=== PATIENT | female | born 1950 | race Caucasian/White ===

== ENCOUNTER 2022-06-20 13:23 | Outpatient (CLI) | payer MEDICARE, SELFPAY ==
[2022-06-20 08:56] LABS: Abs Immature Grans 0.01 10^3/uL (0.0-0.06); Absolute Basophil Count 0.03 10^3/uL (0.0-0.2); Absolute Lymphocyte Count 1.92 10^3/uL (1.2-3.4); Absolute Monocyte Count 0.52 10^3/uL (0.1-0.8); Absolute Neutrophil Count 2.51 10^3/uL (1.2-6.7); Basophils % 0.6; HCT 32.5 % (36.0-46.0); HGB 10.6 g/dL (11.2-15.7); Immature Grans % 0.2; Lymphocytes % 38.5; MCH 28.7 pg (27.0-33.0); MCHC 32.6 % (32.0-36.0); MCV 88 fL (80-95); MPV 9.4 fL (8.0-11.0); Monocytes % 10.4; Neutrophils % 50.3; RBC 3.69 10^6/uL (3.93-5.22); RDW 14.8 % (11.7-14.6); RDW-SD 47.2 fL; WBC 4.99 10^3/uL (4.4-10.8)
[2022-06-20 09:02] LABS: Platelet Count 91 10^3/uL (130-400)
[2022-06-20 09:09] LABS: ALT 30 U/L (14-59); AST 28 U/L (15-37); Albumin 3.5 g/dL (3.4-5.0); Alkaline Phosphatase 94 U/L (46-116); Anion Gap 6.3 mmol/L (3-11); BUN 32 mg/dL (7-18); Bilirubin, Total 0.5 mg/dL (0.2-1.0); CO2 29.7 mmol/L (21.0-32.0); CREATININE 0.8 mg/dL (0.55-1.02); Calcium 9.3 mg/dL (8.5-10.1); Chloride 103 mmol/L (98-107); Estimated GFR 77.27 (mL/min/1.73m2); Glucose 119 mg/dL (74-106); LDH 216 U/L (81-234); Potassium 4.2 mmol/L (3.5-5.1); Sodium 139 mmol/L (136-145); Total Protein 6.7 g/dL (6.4-8.2)
[2022-06-21 09:12] LABS: HBs Antibody, Quant <3.1 mIU/mL (See Note); Hepatitis B Surface Ab Negative (See Note)
[2022-06-21 09:17] LABS: Hepatitis B Surface Ag Negative (Negative)
[2022-06-21 10:24] LABS: Hep B Core Antibody Negative (Negative)
== END 2022-06-20 13:24 | disposition home or self-care (01) ==
PROVIDERS: PCP Physician Assistant; Visit Provider Internal Medicine Hematology & Oncology
DX: C83.07 Small cell B-cell lymphoma, spleen (principal)
CPT/HCPCS: 36415; 80053; 86704; 86706; 87340; 83615; 84550; 85025

== ENCOUNTER 2022-07-18 01:28 | Outpatient (RCR) | payer MEDICARE, SELFPAY ==
[2022-07-18] MEDS: Normal Saline Flush 10 ML SYR IVP (07:50)
[2022-07-18 07:59] LABS: Absolute Basophil Count 0.03 10^3/uL (0.0-0.2); Absolute Lymphocyte Count 0.29 10^3/uL (1.2-3.4); Absolute Monocyte Count 0.37 10^3/uL (0.1-0.8); Basophils % 1.5; HGB 11.1 g/dL (11.2-15.7); Lymphocytes % 14.6; MCH 29.8 pg (27.0-33.0); MCHC 34.7 % (32.0-36.0); MCV 86 fL (80-95); MPV 9.5 fL (8.0-11.0); Monocytes % 18.6; Neutrophils % 65.3; RBC 3.73 10^6/uL (3.93-5.22); RDW 15.8 % (11.7-14.6); RDW-SD 48.8 fL
[2022-07-18 08:12] LABS: ALT 31 U/L (14-59); AST 24 U/L (15-37); Albumin 3.8 g/dL (3.4-5.0); Alkaline Phosphatase 103 U/L (46-116); Anion Gap 5.6 mmol/L (3-11); BUN 35 mg/dL (7-18); Bilirubin, Total 0.5 mg/dL (0.2-1.0); CO2 29.4 mmol/L (21.0-32.0); CREATININE 0.7 mg/dL (0.55-1.02); Calcium 8.9 mg/dL (8.5-10.1); Chloride 103 mmol/L (98-107); Glucose 120 mg/dL (74-106); Potassium 4.3 mmol/L (3.5-5.1); Sodium 138 mmol/L (136-145); Total Protein 6.6 g/dL (6.4-8.2)
[2022-07-18 08:30] LABS: Diff Comment Agrees w/ Instrument
[2022-07-18 08:31] LABS: Platelet Count 76 10^3/uL (130-400)
[2022-07-18 08:32] LABS: WBC 1.99 10^3/uL (4.4-10.8)
[2022-07-18 08:33] LABS: RBC Morphology Normal
== END 2022-08-10 23:59 | disposition home or self-care (01) ==
LOC: INF 01:28
PROVIDERS: PCP Physician Assistant; Visit Provider Internal Medicine Hematology & Oncology
DX: C83.07 Small cell B-cell lymphoma, spleen (principal); Z45.2 Encounter for adjustment and management of vascular access device
CPT/HCPCS: 36591; 80053; 85025

== ENCOUNTER 2022-08-15 07:28 | Outpatient (RCR) | payer MEDICARE, SELFPAY ==
[2022-08-15] MEDS: Normal Saline Flush 10 ML SYR IVP (07:38)
[2022-08-15 07:45] LABS: Abs Immature Grans 0.01 10^3/uL (0.0-0.06); Absolute Basophil Count 0.03 10^3/uL (0.0-0.2); Absolute Lymphocyte Count 0.18 10^3/uL (1.2-3.4); Absolute Monocyte Count 0.49 10^3/uL (0.1-0.8); Absolute Neutrophil Count 2.75 10^3/uL (1.2-6.7); Basophils % 0.9; HCT 35.6 % (36.0-46.0); HGB 12.9 g/dL (11.2-15.7); Immature Grans % 0.3; Lymphocytes % 5.2; MCH 31.5 pg (27.0-33.0); MCHC 36.2 % (32.0-36.0); MCV 87 fL (80-95); MPV 8.9 fL (8.0-11.0); Monocytes % 14.2; Neutrophils % 79.4; Platelet Count 111 10^3/uL (130-400); RBC 4.09 10^6/uL (3.93-5.22); RDW 14.7 % (11.7-14.6); RDW-SD 47.2 fL; WBC 3.46 10^3/uL (4.4-10.8)
[2022-08-15 08:13] LABS: ALT 34 U/L (14-59); AST 21 U/L (15-37); Albumin 4.2 g/dL (3.4-5.0); Alkaline Phosphatase 79 U/L (46-116); Anion Gap 6.9 mmol/L (3-11); BUN 30 mg/dL (7-18); Bilirubin, Total 0.8 mg/dL (0.2-1.0); CO2 30.1 mmol/L (21.0-32.0); CREATININE 0.6 mg/dL (0.55-1.02); Calcium 9.4 mg/dL (8.5-10.1); Chloride 98 mmol/L (98-107); Estimated GFR 94.13 (mL/min/1.73m2); Glucose 150 mg/dL (74-106); Potassium 4.2 mmol/L (3.5-5.1); Sodium 135 mmol/L (136-145); Total Protein 7.1 g/dL (6.4-8.2)
== END 2022-09-10 23:59 | disposition home or self-care (01) ==
LOC: INF 07:28
PROVIDERS: PCP Physician Assistant; Visit Provider Internal Medicine Hematology & Oncology
DX: C83.07 Small cell B-cell lymphoma, spleen (principal); Z45.2 Encounter for adjustment and management of vascular access device
CPT/HCPCS: 36591; 80053; 85025

== ENCOUNTER 2022-09-12 02:56 | Outpatient (RCR) | payer MEDICARE, SELFPAY ==
[2022-09-12] MEDS: Normal Saline Flush 10 ML SYR IVP (07:32)
[2022-09-12 07:49] LABS: Absolute Basophil Count 0.03 10^3/uL (0.0-0.2); Absolute Lymphocyte Count 0.13 10^3/uL (1.2-3.4); Basophils % 1.7; HCT 32.3 % (36.0-46.0); HGB 11.3 g/dL (11.2-15.7); Lymphocytes % 7.4; MCV 92 fL (80-95); MPV 9.4 fL (8.0-11.0); Monocytes % 22.7; Neutrophils % 68.2; Platelet Count 108 10^3/uL (130-400); RBC 3.53 10^6/uL (3.93-5.22); RDW 14.4 % (11.7-14.6); RDW-SD 48.3 fL
[2022-09-12 07:58] LABS: Diff Comment Diff Reviewed; RBC Morphology Normal
[2022-09-12 08:09] LABS: ALT 31 U/L (14-59); AST 22 U/L (15-37); Albumin 3.8 g/dL (3.4-5.0); Alkaline Phosphatase 102 U/L (46-116); Anion Gap 6.7 mmol/L (3-11); BUN 25 mg/dL (7-18); Bilirubin, Total 0.6 mg/dL (0.2-1.0); CO2 27.3 mmol/L (21.0-32.0); CREATININE 0.6 mg/dL (0.55-1.02); Chloride 105 mmol/L (98-107); Estimated GFR 94.13 (mL/min/1.73m2); Glucose 105 mg/dL (74-106); Potassium 4.1 mmol/L (3.5-5.1); Sodium 139 mmol/L (136-145); Total Protein 6.4 g/dL (6.4-8.2)
[2022-09-12 08:20] LABS: WBC 1.76 10^3/uL (4.4-10.8)
== END 2022-10-08 23:59 | disposition home or self-care (01) ==
LOC: INF 02:56
PROVIDERS: PCP Physician Assistant; Visit Provider Internal Medicine Hematology & Oncology
DX: C83.07 Small cell B-cell lymphoma, spleen (principal); Z45.2 Encounter for adjustment and management of vascular access device
CPT/HCPCS: 36591; 80053; 85025

== ENCOUNTER 2022-11-07 02:08 | Outpatient (RCR) | payer MEDICARE, SELFPAY ==
--- OUTSIDE RECORDS SUMMARY | 2022-10-10 08:37 | XMS_ITS ---
Author Name Zelda Valencia Address [address], [place] [id number] Organization [facility] Address [address], [place] [id number] Care Team Providers Care Facilities Engineer Name Role Phone Zelda pacheco Unavailable [phone] PROBLEMS Type Condition ICD9-CM Code XYE27-ZZ Code Onset Dates Condition Status SNOMED Code Problem Other iron deficiency anemia D50.8 Active 71215922 Problem SCCA (squamous cell carcinoma) of skin C44.92 Active 044290652 ALLERGIES Substance Reaction Event Type Date Status Seasonal IC Unknown Drug Allergy 14 Apr, 2022 Active ENCOUNTERS Encounter Location Date Diagnosis [facility] [address] [id number] Apr, SCCA (squamous cell carcinoma) of skin C44.92 [facility] Op [address] [place], [place] [id number] Apr, Pigmented skin lesion L81.9 [facility] [address] [id number] Mar, Outlook Pre-Op Clearance [address] [place] [address] Mar, [facility] [address] [id number] Mar, [facility] [address] [id number] Feb, Pigmented skin lesion L81.9 [facility] [address] [id number] Feb, Gastroenterology [address] [facility] [address] [place], [place] [id number] Jul, Gastroenterology [address] [facility] [address] [place], [place] [id number] Jun, Abnormal liver enzymes R74.8 and Anemia, unspecified type D64.9 Gastroenterology [address] [facility] [address] [place], [place] [id number] May, Gastroenterology [address] [facility] [address] [place], [place] [id number] May, Other iron deficiency anemia D50.8 and Abnormal liver enzymes R74.8 Gastroenterology [address] [facility] [address] [place], [place] [id number] May, [facility] [address] [facility] [address] [place] [id number] Apr, [facility] Audiology [address] [facility] [address] [place], [place] [id number] Jul, SENSORNEUR HEAR LOSS NOS 389.10 IMMUNIZATIONS No Known Immunizations SOCIAL HISTORY Qualifiers Date Former Smoker REASON FOR REFERRAL FUNCTIONAL STATUS PLAN OF CARE Activity Details VITAL SIGNS Height 5ft 5in in 2022-04-30 Height 5ft 5in in 2022-03-06 Height 5ft 5in in 2021-06-20 Weight 121.4 lbs 2022-04-30 Weight 124.6 lbs 2022-03-06 Weight 130.8 lbs 2021-06-20 Weight 131.8 lbs 2021-06-05 Weight 126.4 lbs 2021-06-04 Temperature 96.2 degrees Fahrenheit Temperature 96.5 degrees Fahrenheit Temperature 97.8 degrees Fahrenheit Temperature 97.7 degrees Fahrenheit Heart Rate 86 /min 2022-04-30 Heart Rate 41 /min 2022-03-06 Heart Rate 93 /min 2021-06-20 Heart Rate 82 /min 2021-06-05 Oximetry 96 2022-04-30 Oximetry 96 2022-03-06 Oximetry 97 2021-06-20 Oximetry 98 2021-06-05 BMI 20.20 kg/m2 2022-04-30 BMI 20.73 kg/m2 2022-03-06 BMI 21.76 kg/m2 2021-06-20 Blood pressure systolic 118 mm Hg Blood pressure diastolic 58 mm Hg 2022-04 MEDICATIONS Medication Instructions Dosage Frequency Start Date End Date Duration Status CoQ-10 100 MG as directed Active Macular Health Formula - as directed Active Magnesium Oxide 200 MG as directed Active Citracal +D3 250-107-500 MG-MG-UNIT Orally twice a day as directed 12h Active Optic-Vites - Orally twice a day as directed 12h Active Vitamin D 25 MCG (1000 UT) Orally twice a day 1 tablet 12h Active Vitamin K2 100 MCG as directed Active Lisinopril 20 MG Orally Once a day 1 tablet 24h 30 day(s) Active Cholecalciferol 25 MCG (1000 UT) Orally Once a day 1 capsule 24h 30 day(s) Not-Taki ng Daily [employer] Formula - as directed A ctive [place]-3 & [place]-6 Fish Oil Active Iron 325 MG Orally Twice a day 1 tablet 12h Not-Taki ng PROCEDURES Procedure Date Ordered Result Body Site PUNCH BX SKIN SINGLE LESION March 06, 2022 COMPREHENSIVE AUDIOMET THRESH AND SPEECH Jul 30, 2012 RESULTS Name Result Date Reference Range XR FOOT 3 VIEW LEFT 2022-03-26 US ABDOMINAL LIMITED 2021-06-12 HEPATITIS B SURFACE ANTIGEN 2021-06-05 HEP B SURFACE AG NON-REACTIVE NON-REACTIV E HEP B SURFACE AG NON-REACTIVE NON-REACTIV E ALPHA 1 ANTITRYPSIN PHENOTYPE ([id number]) 31-05-26 Kpeqg-1-Hwtujvsvswb, Serum 171 1 01-187 Phenotype (PI) MS KATTY ([id number]) 2021-06-05 Antinuclear Antibodies, IFA Negative JAKE FIBROSURE ( [id number]) 2021-06-05 Fibrosis Score 0.08 0.00-0.21 Fibrosis Stage Comment Steatosis Score 0.51 0.00-0.30 Steatosis Grade Comment JAKE Score 0.15 0.00-17.00 JAKE Grade Comment Height: 65 Weight: 131 Alpha 2-Macroglobulins, Qn 137 1 10-276 Haptoglobin 184 42-346 Apolipoprotein A-1 107 116-209 Bilirubin, Total 0.2 0.0-1.2 GGT 14 0-60 ALT (SGPT) P5P 29 0-40 AST (SGOT) P5P 35 0-40 Cholesterol, Total 160 100-199 Glucose, Serum 124 65-99 Triglycerides 96 0-149 Interpretation: Comment Fibrosis Scoring: Comment Steatosis Grading Comment JAKE Scoring Comment Limitations: Comment Comment: Comment CERULOPLASMIN ([id number]) 2021-06-05 Ceruloplasmin 46.4 19.0-39.0 COMPREHENSIVE METABOLIC PROFILE 2021-05-12 6 SODIUM 134 134-143 POTASSIUM 4.2 3.5-5.1 CHLORIDE 99 98-111 CO2 25 22-32 CALCIUM 9.5 8.9-10.3 BUN 27 8-26 CREATININE 0.66 0.44-1.00 TOTAL BILIRUBIN 0.3 0.3-1.2 TOTAL PROTEIN 6.6 6.5-8.1 ALBUMIN 3.8 3.5-5.0 ALKALINE PHOS 81 32-92 AST 31 15-41 ALT 29 14-54 A/GAP 10.0 3.0-12.0 B/CR 40.9 8.0-20.0 OSMOLARITY 275 275-295 GLOBULIN 2.8 2.3-3.5 A/G 1.4 1.0-2.5 HEPATITIS A TOTAL ANTIBODY ([id number]) 06-05 Hep A Ab, Total Negative Negative HEPATITIS B CORE TOTAL ANTIBODY ([id number]) 2021-06-05 Hep B Core Ab, Tot Negative Negative HEPATITIS B SURFACE ANTIBODY 2021-06-05 HEPATITIS C ANTIBODY 2021-06-05 HEP C IgG ANTIBODY NON-REACTIVE NON-REACT SCOOTER HEP C IgG ANTIBODY NON-REACTIVE NON-REACT SCOOTER MITOCHONDRIAL (M2) IGG ABS ([id number]) 06-05 Mitochondrial (M2) Antibody <20.0 0.0-20.0 CBC, WITH AUTO DIFF 2021-06-05 WBC 6.5 4.8-10.8 RBC 4.36 4.20-5.40 HGB 11.6 12.0-16.0 HCT 35.9 37.0-47.0 MCV 82.3 81.0-99.0 MCH 26.6 27.0-31.0 MCHC 32.3 32.0-37.0 RDW-CV 17.1 11.5-14.5 PLT 133 130-400 MPV 9.6 7.4-10.4 NE% 45.4 42.2-75.2 LY% 39.6 20.5-51.1 MO% 13.7 1.7-9.3 EO% 0.5 0.9-2.9 BA% 0.6 0.0-0.8 NE# 3.0 1.4-6.5 LY# 2.6 1.2-3.4 MO# 0.9 0.1-0.6 EO# 0.0 0.0-0.2 BA# 0.0 0.0-0.2 SMEAR COMMENT SEE COMMENTS SEE COMMENTS SMOOTH MUSCLE TOTAL AUTOABS 2021-06-05 CELIAC DISEASE COMPREHENSIVE ([id number]) 08-20-25 Deamidated Gliadin Abs, IgA 2 0-19 Deamidated Gliadin Abs, IgG 2 0-19 t-Transglutaminase (tTG) IgA <2 0-3 t-Transglutaminase (tTG) IgG <2 0-5 Endomysial Antibody IgA Negative Nega tive Immunoglobulin A, Qn, Serum 77 64-422 FERRITIN 2021-06-05 FERRITIN 111.9 11.0-307.0 IRON/TRANSFERRIN PANEL 2021-06-05 IRON 49 28-170 TRANSFERRIN 227 192-382 TIBC 318 250-400 IRON SATURATION 15 20-55 VITAMIN B12 & FOLATE 2021-06-05 VIT B12 726 180-914 FOLATE >20.0 >=6.0 REASON FOR VISIT GS-f/u EXCISION OF SCC LEFT LOWER EXT 04/17/2022, Path: Squamous cell carcinoma, well differentiated, invasive. Margins of excision negative, GS EXCISION OF SCC LEFT LOWER EXT, 03/06/2022: punch biopsy Left lateral leg lesion: atypical endophytic squamous proliferation, Requesting pathology report, pre op, biopsy results, GS EXCISION LESION LEFT LOWER EXTREMITY, Procedure question, lab test letter- awaiting call 07/27, GI- 2 WK F/U anemia and elevated liver functions., GI- Anemia, question of bleed, pre load, Prescription refill, AUD- LUMBER STRAIGHTENED AUD Insurance Providers Health Insurance Type Health Plan Insurance Address Health Plan Insurance Phone Health Plan Insurance Name Health Plan Coverage Dates Member ID Patient Relationship to Subscriber Patient Address Patient Phone Patient Name Patient Date of Subscriber ID Subscriber Name Subscriber Date of Group No [facility] [address] [facility] [id number] [facility] self Sarah Easley [id number] Plan N NGS MEDIC[place] [address] [place] [phone] NGS MEDICARE self Sarah Easley [id number] MEDICARE [address] [facility] [address] [phone] MEDICARE self Sarah Easley [id number] MEDICARE PART A [address] [facility] [address] MEDICARE PART A self Sarah Easley [id number] BCBS OUT OF AREA [address] ATTN CLAIMS [facility] [id number] [phone] BCBS OUT OF AREA self Sarah Easley [id number]
--- OUTSIDE RECORDS SUMMARY | 2022-10-10 08:37 | XMS_ITS | Continuity of Care Document ---
Author Name Unknown Organization [facility] Address [address] [place] [phone] Care Team Providers Care Artificial Flowers Supervisor Name Role Phone Kaley Rubio Primary Care Physic blayne Encounter [facility]_[place] FIN NBR [id number] Date(s): 07/02/22 - 07/02/[address] [address] Discharge Disposition: Home or Self Care Attending Physician: SANDEEP ASCENCIO Admitting Physician: SANDEEP ASCENCIO Results Laboratory List Name Date CBC w/ Diff 07/02/22 Comprehensive Metabolic Panel 07/02/22 Ferritin 07/02/22 Lactate Dehydrogenase 07/02/22 Automated Diff 07/02/22 Most recent to oldest [Reference Range]: 1 WBC [4.8-10.8 K/mcL] 3.3 K/mcL *LOW* (07/02/22 10:36 AM) RBC [4.20-6.10 Million/mcL] 4.02 Million /mcL *LOW* (07/02/22 10:36 AM) Neutro Auto [42.2-75.2 %] 67.9 % (07/02/22 10:36 AM) Lymph Auto [20.5-51.1 %] 18.2 % *LOW* (07/02/22 10:36 AM) [place] Auto [1.7-9.3 %] 13.0 % *HI* (07/02/22 10:36 AM) Basophil Auto [0.0-0.8 %] 0.6 % (07/02/22 10:36 AM) BUN [8-26 mg/dL] 27 mg/dL *HI* (07/02/22 10:36 AM) Glucose Level [74-106 mg/dL] 108 mg/dL *HI* (07/02/22 10:36 AM) Potassium Level [3.5-5.1 mmol/L] 4.2 mmo l/L (07/02/22 10:36 AM) Baso Absolute [0.0-0.2 K/mcL] 0.0 K/mcL (07/02/22 10:36 AM) MCV [80.0-99.0 fL] 85.3 fL (07/02/22 10:36 AM) AST [15-41 IntlUnit/L] 31 IntlUnit/L (07/02/22 10:36 AM) ALT [14-54 IntlUnit/L] 42 IntlUnit/L (07/02/22 10:36 AM) MCHC [32.0-36.0 g/dL] 33.8 g/dL (07/02/22 10:36 AM) Osmolality [275-295 mOsm/kg] 278 mOsm/kg (07/02/22 10:36 AM) Sodium Level [134-143 mmol/L] 136 mmol/L (07/02/22 10:36 AM) Lymph Absolute [1.2-3.4 K/mcL] 0.6 K/mcL *LOW* (07/02/22 10:36 AM) Hct [37.0-52.0 %] 34.3 % *LOW* (07/02/22 10:36 AM) Calcium Level [8.9-10.3 mg/dL] 9.3 mg/dL (07/02/22 10:36 AM) [place] Absolute [0.1-0.6 K/mcL] 0.4 K/mcL (07/02/22 10:36 AM) Albumin Level [3.5-5.0 g/dL] 4.0 g/dL (07/02/22 10:36 AM) Protein Total [6.5-8.1 g/dL] 6.3 g/dL *LOW* (07/02/22 10:36 AM) MCH [27.0-31.0 pg] 28.9 pg (07/02/22 10:36 AM) Neutro Absolute [1.4-6.5 K/mcL] 2.2 K/mc L (07/02/22 10:36 AM) Bilirubin Total [0.2-1.2 mg/dL] 0.9 mg/d L (07/02/22 10:36 AM) Hgb [12.0-18.0 g/dL] 11.6 g/dL *LOW* (07/02/22 10:36 AM) Alk Phos [38-130 IntlUnit/L] 70 IntlUnit /L (07/02/22 10:36 AM) LDH [98-192 IntlUnit/L] 203 IntlUnit/L *HI* (07/02/22 10:36 AM) MPV [7.4-10.4 fL] 8.3 fL (07/02/22 10:36 AM) Ferritin Level [11.0-307.0 ng/mL] 448.5 ng/mL *HI* (07/02/22 10:36 AM) Platelets [130-400 K/mcL] 165 K/mcL (07/02/22 10:36 AM) CO2 [22-32 mmol/L] 27 mmol/L (07/02/22 10:36 AM) Eos Absolute [0.0-0.2 K/mcL] 0.0 K/mcL (07/02/22 10:36 AM) eGFR Non-AA 97 *NA* (07/02/22 10:36 AM) eGFR AA 97 *NA* (07/02/22 10:36 AM) Chloride Level [98-111 mmol/L] 101 mmol/ L (07/02/22 10:36 AM) RDW-CV [11.5-14.5 %] 15.6 % *HI* (07/02/22 10:36 AM) A/G Ratio 1.7 *NA* (07/02/22 10:36 AM) BUN/Creat Ratio [8.0-20.0] 50.9 *HI* (07/02/22 10:36 AM) Globulin 2.3 *NA* (07/02/22 10:36 AM) Imm Gran Absolute 0.01 *NA* (07/02/22 10:36 AM) Imm Gran Auto [0.0-0.5 %] 0.3 % (07/02/22 10:36 AM) Creatinine Level [0.44-1.00 mg/dL] 0.53 mg/dL (07/02/22 10:36 AM) Anion Gap [3.0-12.0] 8.0 (07/02/22 10:36 AM) Eos, Auto [0.00-3.00 %] 0.00 % (07/02/22 10:36 AM) Patient Care team information Personnel Name: Kaley Rubio Address: Address: [address] [place] [address] [place], [place] [address]
--- OUTSIDE RECORDS SUMMARY | 2022-10-10 08:37 | XMS_ITS | Continuity of Care Document ---
Author Name Unknown Organization [facility] Address [address] [place] [phone] Care Team Providers Care Floor Tiling Professional Name Role Phone Kaley Rubio Primary Care Physic blayne Encounter LTTL_[facility] FIN NBR [id number] Date(s): 06/18/22 - 06/18/[address] [id number] [phone] Discharge Disposition: Home or Self Care Attending Physician: Kaley Rubio Admitting Physician: Kaley Rubio Results Radiology Reports * Exam Date Time Procedure Performing Provider Status 06/18/22 8:36 AM MG Mammo Screening Bilateral Perras, A nna; Auth (Verified) Notes: (MG Mammo Screening Bilateral) Reason For Exam: screening MG Mammo Screening Bilateral EXAM DESCRIPTION: MG Mammo Screening Bilateral 06/18/2022 INDICATION: SCREENING RISK FACTOR: The patient may be at increased breast cancer risk based on Paula risk model COMPARISON: Prior studies most recently dated 06/14/2021 and 06/13/2020 BREAST DENSITY: The breasts are heterogeneously dense which may obscure small masses. FINDINGS: MLO and CC views were performed with digital breast tomosynthesis. Images were reviewed using computer aided detection. No asymmetry, architectural distortion or suspicious grouping of calcifications to suggest malignancy in either breast. ASSESSMENT: No mammographic evidence of malignancy. Negative. BI-RADS category 1. RECOMMENDATION: Screening mammography in 1 year JOB #: [id number] Final Signed by: Reid Manuel MD Signed (Electronic Signature): 06/18/2022 9:01 am * Exam Date Time Procedure Performing Provider Status 06/18/22 8:52 AM BD Bone Density DEXA Axial Skeleton Alaina Hannah; Auth (Verified) Notes: (BD Bone Density DEXA Axial Skeleton) Reason For Exam: OSTEO BD Bone Density DEXA Axial Skeleton EXAM DESCRIPTION: BD Bone Density DEXA Axial Skeleton 06/18/2022 INDICATION: OSTEO TECHNIQUE: Bone Densitometry (DEXA) was performed. COMPARISON: 06/13/2020 FINDINGS: Average bone mineral density of the lumbar spine from L1-4 is 0.791 g per sq cm corresponding to a T-score of -2.3. Findings consistent with osteopenia. Increased fracture risk. 8.3% interval decrease in bone density in this region. Bone mineral density in the left femoral neck is 0.644 g per sq cm corresponding to a T-score of -1.8. Findings consistent with osteopenia. Increased fracture risk. 3.4% interval decrease in bone density in this region. Bone mineral density involving the distal 1/3 of the left forearm is 0.446 g per sq cm corresponding to a T-score of -4.1. Findings consistent with osteoporosis. High fracture risk. 2.9% interval decrease in bone density in this region. FRAX-10 year probability of fracture: Major osteoporotic fracture 10%, hip fracture 2.5%. IMPRESSION: Findings consistent with osteoporosis. High fracture risk. JOB #: [id number] Final Signed by: Reid Manuel MD Signed (Electronic Signature): 06/18/2022 8:58 am DXA Skeletal system.axial Views for bone density * Reid Manuel MD: VERIFY, VERIFY Event Display: Report EXAM DESCRIPTION: BD Bone Density DEXA Axial Skeleton 06/18/2022 INDICATION: OSTEO TECHNIQUE: Bone Densitometry (DEXA) was performed. COMPARISON: 06/13/2020 FINDINGS: Average bone mineral density of the lumbar spine from L1-4 is 0.791 g per sq cm corresponding to a T-score of -2.3. Findings consistent with osteopenia. Increased fracture risk. 8.3% interval decrease in bone density in this region. Bone mineral density in the left femoral neck is 0.644 g per sq cm corresponding to a T-score of -1.8. Findings consistent with osteopenia. Increased fracture risk. 3.4% interval decrease in bone density in this region. Bone mineral density involving the distal 1/3 of the left forearm is 0.446 g per sq cm corresponding to a T-score of -4.1. Findings consistent with osteoporosis. High fracture risk. 2.9% interval decrease in bone density in this region. FRAX-10 year probability of fracture: Major osteoporotic fracture 10%, hip fracture 2.5%. IMPRESSION: Findings consistent with osteoporosis. High fracture risk. JOB #: [id number] Final Signed by: Reid Manuel MD Signed (Electronic Signature): 06/18/2022 8:58 am MG Breast - bilateral Screening * Reid Manuel MD: VERIFY, VERIFY Event Display: Report EXAM DESCRIPTION: MG Mammo Screening Bilateral 06/18/2022 INDICATION: SCREENING RISK FACTOR: The patient may be at increased breast cancer risk based on Paula risk model COMPARISON: Prior studies most recently dated 06/14/2021 and 06/13/2020 BREAST DENSITY: The breasts are heterogeneously dense which may obscure small masses. FINDINGS: MLO and CC views were performed with digital breast tomosynthesis. Images were reviewed using computer aided detection. No asymmetry, architectural distortion or suspicious grouping of calcifications to suggest malignancy in either breast. ASSESSMENT: No mammographic evidence of malignancy. Negative. BI-RADS category 1. RECOMMENDATION: Screening mammography in 1 year JOB #: [id number] Final Signed by: Reid Manuel MD Signed (Electronic Signature): 06/18/2022 9:01 am Patient Care team information Care Team Personnel Name: Kaley Rubio Position: No Access Member Role: Primary Care Physician Address: Address: [address] [facility] [place], [place] [address]
[2022-10-10 08:48] LABS: Absolute Basophil Count 0.03 10^3/uL (0.0-0.2); Absolute Lymphocyte Count 0.18 10^3/uL (1.2-3.4); Absolute Monocyte Count 0.41 10^3/uL (0.1-0.8); Absolute Neutrophil Count 1.66 10^3/uL (1.2-6.7); Basophils % 1.3; HCT 34.2 % (36.0-46.0); HGB 12.1 g/dL (11.2-15.7); Lymphocytes % 7.9; MCH 32.3 pg (27.0-33.0); MCHC 35.4 % (32.0-36.0); MCV 91 fL (80-95); MPV 9.1 fL (8.0-11.0); Neutrophils % 72.8; Platelet Count 104 10^3/uL (130-400); RBC 3.75 10^6/uL (3.93-5.22); RDW 13.5 % (11.7-14.6); RDW-SD 46.1 fL; WBC 2.28 10^3/uL (4.4-10.8)
[2022-10-10 09:00] LABS: ALT 39 U/L (14-59); AST 25 U/L (15-37); Albumin 3.9 g/dL (3.4-5.0); Alkaline Phosphatase 115 U/L (46-116); Anion Gap 7.3 mmol/L (3-11); BUN 31 mg/dL (7-18); Bilirubin, Total 0.6 mg/dL (0.2-1.0); CO2 28.7 mmol/L (21.0-32.0); CREATININE 0.7 mg/dL (0.55-1.02); Calcium 9.4 mg/dL (8.5-10.1); Chloride 104 mmol/L (98-107); Glucose 121 mg/dL (74-106); Potassium 4.4 mmol/L (3.5-5.1); Sodium 140 mmol/L (136-145); Total Protein 6.6 g/dL (6.4-8.2)
[2022-10-10] MEDS: Normal Saline Flush 10 ML SYR IVP (09:12)
[2022-11-07] MEDS: Normal Saline Flush 10 ML SYR IVP (09:04)
[2022-11-07 09:07] LABS: Abs Immature Grans 0.01 10^3/uL (0.0-0.06); Absolute Basophil Count 0.03 10^3/uL (0.0-0.2); Absolute Lymphocyte Count 0.14 10^3/uL (1.2-3.4); Absolute Monocyte Count 0.38 10^3/uL (0.1-0.8); Absolute Neutrophil Count 1.52 10^3/uL (1.2-6.7); Basophils % 1.4; HCT 35.1 % (36.0-46.0); HGB 12.5 g/dL (11.2-15.7); Immature Grans % 0.5; Lymphocytes % 6.7; MCH 32.7 pg (27.0-33.0); MCHC 35.6 % (32.0-36.0); MCV 92 fL (80-95); Monocytes % 18.3; Neutrophils % 73.1; Platelet Count 105 10^3/uL (130-400); RBC 3.82 10^6/uL (3.93-5.22); RDW 12.9 % (11.7-14.6); RDW-SD 43.3 fL; WBC 2.08 10^3/uL (4.4-10.8)
[2022-11-07 09:22] LABS: ALT 34 U/L (14-59); AST 24 U/L (15-37); Albumin 3.8 g/dL (3.4-5.0); Alkaline Phosphatase 99 U/L (46-116); Anion Gap 6.9 mmol/L (3-11); BUN 25 mg/dL (7-18); Bilirubin, Total 0.5 mg/dL (0.2-1.0); CO2 30.1 mmol/L (21.0-32.0); CREATININE 0.8 mg/dL (0.55-1.02); Calcium 9.5 mg/dL (8.5-10.1); Chloride 103 mmol/L (98-107); Estimated GFR 77.27 (mL/min/1.73m2); Glucose 114 mg/dL (74-106); Potassium 4.3 mmol/L (3.5-5.1); Sodium 140 mmol/L (136-145); Total Protein 6.7 g/dL (6.4-8.2)
== END 2022-11-08 23:59 | disposition home or self-care (01) ==
LOC: INF 02:08
PROVIDERS: PCP Physician Assistant; Visit Provider Internal Medicine Hematology & Oncology
DX: C83.07 Small cell B-cell lymphoma, spleen (principal); Z45.2 Encounter for adjustment and management of vascular access device
CPT/HCPCS: 36591; 80053; 85025

== ENCOUNTER 2022-12-26 12:22 | Outpatient (RCR) | payer MEDICARE, SELFPAY ==
[2022-12-26 12:27] LABS: Absolute Basophil Count 0.02 10^3/uL (0.0-0.2); Absolute Eosinophil Count 0.02 10^3/uL (0.0-0.7); Absolute Lymphocyte Count 0.16 10^3/uL (1.2-3.4); Absolute Monocyte Count 0.43 10^3/uL (0.1-0.8); Absolute Neutrophil Count 1.89 10^3/uL (1.2-6.7); Basophils % 0.8; Eosinophils % 0.8; HCT 34.9 % (36.0-46.0); HGB 12.5 g/dL (11.2-15.7); Lymphocytes % 6.3; MCHC 35.8 % (32.0-36.0); MCV 92 fL (80-95); MPV 8.8 fL (8.0-11.0); Monocytes % 17.1; Platelet Count 124 10^3/uL (130-400); RBC 3.79 10^6/uL (3.93-5.22); RDW 12.6 % (11.7-14.6); RDW-SD 42.3 fL; WBC 2.52 10^3/uL (4.4-10.8)
[2022-12-26 12:44] LABS: ALT 34 U/L (14-59); AST 25 U/L (15-37); Alkaline Phosphatase 86 U/L (46-116); Anion Gap 7.3 mmol/L (3-11); BUN 24 mg/dL (7-18); Bilirubin, Total 0.6 mg/dL (0.2-1.0); CO2 28.7 mmol/L (21.0-32.0); CREATININE 0.7 mg/dL (0.55-1.02); Calcium 9.4 mg/dL (8.5-10.1); Chloride 102 mmol/L (98-107); Glucose 98 mg/dL (74-106); Sodium 138 mmol/L (136-145)
[2022-12-26] MEDS: Heparin 500 UNITS/5 ML SYRINGE IV (13:57)
[2022-12-26] MEDS: Normal Saline Flush 10 ML SYR IVP (13:57)
== END 2023-01-08 23:59 | disposition home or self-care (01) ==
LOC: INF 12:22
PROVIDERS: PCP Physician Assistant; Visit Provider Internal Medicine Hematology & Oncology
DX: C83.07 Small cell B-cell lymphoma, spleen (principal); Z45.2 Encounter for adjustment and management of vascular access device
CPT/HCPCS: 36591; 80053; 96523; 85025

== ENCOUNTER 2023-06-26 13:11 | Outpatient (CLI) | payer MEDICARE, SELFPAY ==
[2023-06-26 12:07] LABS: Abs Immature Grans 0.01 10^3/uL (0.0-0.06); Absolute Basophil Count 0.02 10^3/uL (0.0-0.2); Absolute Eosinophil Count 0.05 10^3/uL (0.0-0.7); Absolute Lymphocyte Count 0.24 10^3/uL (1.2-3.4); Absolute Monocyte Count 0.35 10^3/uL (0.1-0.8); Absolute Neutrophil Count 2.14 10^3/uL (1.2-6.7); Basophils % 0.7; Eosinophils % 1.8; HCT 38.8 % (36.0-46.0); HGB 13.3 g/dL (11.2-15.7); Immature Grans % 0.4; Lymphocytes % 8.5; MCHC 34.3 % (32.0-36.0); MCV 90 fL (80-95); Monocytes % 12.5; Neutrophils % 76.1; Platelet Count 141 10^3/uL (130-400); RBC 4.29 10^6/uL (3.93-5.22); RDW 11.9 % (11.7-14.6); RDW-SD 39.4 fL; WBC 2.81 10^3/uL (4.4-10.8)
[2023-06-26 12:28] LABS: ALT 30 U/L (14-59); AST 25 U/L (15-37); Albumin 4.1 g/dL (3.4-5.0); Alkaline Phosphatase 87 U/L (46-116); Anion Gap 7.9 mmol/L (3-11); BUN 27 mg/dL (7-18); Bilirubin, Total 0.6 mg/dL (0.2-1.0); CO2 27.1 mmol/L (21.0-32.0); CREATININE 0.8 mg/dL (0.55-1.02); Chloride 104 mmol/L (98-107); Estimated GFR 76.79 (mL/min/1.73m2); Glucose 109 mg/dL (74-106); LDH 173 U/L (81-234); Sodium 139 mmol/L (136-145); Total Protein 7.3 g/dL (6.4-8.2)
[2023-06-30 14:00] LABS: IgA 87 mg/dL (85-499); IgG 626 mg/dL (610-1616); IgM 31 mg/dL (35-242); Kappa Free Light Chain 1.94 mg/dL (0.33-1.94); Lambda Free Light Chain 1.14 mg/dL (0.57-2.63)
[2023-06-30 14:52] LABS: Albumin 70.2 % (55.8-66.1); Albumin g/dL 4.7 g/dL (3.6-5.2); Total Protein 6.7 g/dL (6.3-8.2)
== END 2023-06-26 13:12 | disposition home or self-care (01) ==
LOC: LBO 13:11
PROVIDERS: PCP Physician Assistant; Visit Provider Internal Medicine Hematology & Oncology
DX: C83.07 Small cell B-cell lymphoma, spleen (principal)
CPT/HCPCS: 36415; 80053; 82784; 83615; 83883; 84165; 85025

== ENCOUNTER 2023-12-18 13:26 | Outpatient (CLI) | payer MEDICARE, SELFPAY ==
[2023-12-18 10:04] LABS: Abs Immature Grans 0.01 10^3/uL (0.0-0.06); Absolute Basophil Count 0.03 10^3/uL (0.0-0.2); Absolute Eosinophil Count 0.06 10^3/uL (0.0-0.7); Absolute Lymphocyte Count 0.27 10^3/uL (1.2-3.4); Absolute Monocyte Count 0.29 10^3/uL (0.1-0.8); Absolute Neutrophil Count 2.01 10^3/uL (1.2-6.7); Basophils % 1.1 %; Eosinophils % 2.2 %; HCT 40.8 % (36.0-46.0); HGB 14.1 g/dL (11.2-15.7); Immature Grans % 0.4 %; Lymphocytes % 10.1 %; MCHC 34.6 % (32.0-36.0); MCV 93 fL (80-95); MPV 9.7 fL (8.0-11.0); Monocytes % 10.9 %; Neutrophils % 75.3 %; Platelet Count 166 10^3/uL (130-400); RDW 11.9 % (11.7-14.6); RDW-SD 40.7 fL; WBC 2.67 10^3/uL (4.4-10.8)
[2023-12-18 10:54] LABS: ALT 27 U/L (14-59); AST 18 U/L (15-37); Albumin 4.2 g/dL (3.4-5.0); Alkaline Phosphatase 112 U/L (46-116); Anion Gap 9.5 mmol/L (3-11); BUN 37 mg/dL (7-18); Bilirubin, Total 0.5 mg/dL (0.2-1.0); CO2 27.5 mmol/L (21.0-32.0); CREATININE 0.8 mg/dL (0.55-1.02); Calcium 9.5 mg/dL (8.5-10.1); Chloride 103 mmol/L (98-107); Estimated GFR 76.79 (mL/min/1.73m2); Glucose 113 mg/dL (74-106); LDH 144 U/L (81-234); Potassium 4.3 mmol/L (3.5-5.1); Sodium 140 mmol/L (136-145); Total Protein 7.3 g/dL (6.4-8.2)
[2023-12-19 08:45] LABS: IgA 96 mg/dL (85-499); IgG 641 mg/dL (610-1616); IgM 26 mg/dL (35-242)
== END 2023-12-18 13:27 | disposition home or self-care (01) ==
LOC: LBO 13:27
PROVIDERS: PCP Physician Assistant; Visit Provider Internal Medicine Hematology & Oncology
DX: C83.07 Small cell B-cell lymphoma, spleen (principal)
CPT/HCPCS: 36415; 80053; 82784; 83615; 85025

== ENCOUNTER 2024-03-18 12:16 | Outpatient (CLI) | payer MEDICARE, SELFPAY ==
[2024-03-18 12:13] LABS: Abs Immature Grans 0.02 10^3/uL (0.0-0.06); Absolute Basophil Count 0.02 10^3/uL (0.0-0.2); Absolute Eosinophil Count 0.09 10^3/uL (0.0-0.7); Absolute Lymphocyte Count 0.42 10^3/uL (1.2-3.4); Absolute Monocyte Count 0.36 10^3/uL (0.1-0.8); Absolute Neutrophil Count 2.58 10^3/uL (1.2-6.7); Basophils % 0.6 %; Eosinophils % 2.6 %; HCT 40.4 % (36.0-46.0); HGB 13.8 g/dL (11.2-15.7); Immature Grans % 0.6 %; MCH 31.3 pg (27.0-33.0); MCHC 34.2 % (32.0-36.0); MCV 92 fL (80-95); MPV 9.2 fL (8.0-11.0); Monocytes % 10.3 %; Neutrophils % 73.9 %; Platelet Count 153 10^3/uL (130-400); RBC 4.41 10^6/uL (3.93-5.22); RDW 11.8 % (11.7-14.6); RDW-SD 39.6 fL; WBC 3.49 10^3/uL (4.4-10.8)
[2024-03-18 12:28] LABS: ALT 31 U/L (14-59); AST 22 U/L (15-37); Albumin 4.1 g/dL (3.4-5.0); Alkaline Phosphatase 81 U/L (46-116); Anion Gap 8.6 mmol/L (3-11); BUN 25 mg/dL (7-18); Bilirubin, Total 0.78 mg/dL (0.2-1.0); CO2 28.4 mmol/L (21.0-32.0); CREATININE 0.8 mg/dL (0.55-1.02); Calcium 9.5 mg/dL (8.5-10.1); Chloride 103 mmol/L (98-107); Estimated GFR 76.31 (mL/min/1.73m2); Glucose 105 mg/dL (74-106); LDH 154 U/L (81-234); Potassium 4.2 mmol/L (3.5-5.1); Sodium 140 mmol/L (136-145); Total Protein 7.1 g/dL (6.4-8.2)
== END 2024-03-18 12:17 | disposition home or self-care (01) ==
LOC: LBO 12:17
PROVIDERS: PCP Physician Assistant; Visit Provider Internal Medicine Hematology & Oncology
DX: C83.07 Small cell B-cell lymphoma, spleen (principal)
CPT/HCPCS: 36415; 80053; 83615; 85025

== ENCOUNTER 2024-09-29 02:20 | Outpatient (CLI) | payer MEDICARE, SELFPAY ==
[2024-09-29 09:32] LABS: Abs Immature Grans 0.01 10^3/uL (0.0-0.06); Absolute Basophil Count 0.04 10^3/uL (0.0-0.2); Absolute Eosinophil Count 0.09 10^3/uL (0.0-0.7); Absolute Lymphocyte Count 0.38 10^3/uL (1.2-3.4); Absolute Monocyte Count 0.41 10^3/uL (0.1-0.8); Absolute Neutrophil Count 2.98 10^3/uL (1.2-6.7); Eosinophils % 2.3 %; HCT 41.7 % (36.0-46.0); Immature Grans % 0.3 %; Lymphocytes % 9.7 %; MCH 31.2 pg (27.0-33.0); MCHC 33.6 % (32.0-36.0); MCV 93 fL (80-95); MPV 9.3 fL (8.0-11.0); Monocytes % 10.5 %; Neutrophils % 76.2 %; Platelet Count 171 10^3/uL (130-400); RBC 4.49 10^6/uL (3.93-5.22); RDW 11.7 % (11.7-14.6); RDW-SD 40.5 fL; WBC 3.91 10^3/uL (4.4-10.8)
[2024-09-29 09:59] LABS: ALT 37 U/L (14-59); AST 24 U/L (15-37); Alkaline Phosphatase 105 U/L (46-116); Anion Gap 4.2 mmol/L (3-11); BUN 30 mg/dL (7-18); Bilirubin, Total 0.58 mg/dL (0.2-1.0); CO2 32.8 mmol/L (21.0-32.0); CREATININE 0.8 mg/dL (0.55-1.02); Calcium 9.5 mg/dL (8.5-10.1); Chloride 104 mmol/L (98-107); Estimated GFR 76.31 (mL/min/1.73m2); Glucose 120 mg/dL (74-106); LDH 165 U/L (81-234); Potassium 4.3 mmol/L (3.5-5.1); Sodium 141 mmol/L (136-145); Total Protein 7.1 g/dL (6.4-8.2)
== END 2024-09-29 02:21 | disposition home or self-care (01) ==
LOC: LBO 02:20
PROVIDERS: PCP Physician Assistant; Visit Provider Internal Medicine Hematology & Oncology
DX: C83.07 Small cell B-cell lymphoma, spleen (principal)
CPT/HCPCS: 36415; 80053; 83615; 85025

== ENCOUNTER 2025-04-13 14:58 | Outpatient (CLI) | payer MEDICARE, SELFPAY ==
[2025-04-13 08:39] LABS: Abs Immature Grans 0.01 10^3/uL (0.0-0.06); HCT 39.7 % (36.0-46.0); HGB 13.8 g/dL (11.2-15.7); Immature Grans % 0.2 %; MCH 31.9 pg (27.0-33.0); MCHC 34.8 % (32.0-36.0); MCV 92 fL (80-95); MPV 9.2 fL (8.0-11.0); Platelet Count 180 10^3/uL (130-400); RBC 4.33 10^6/uL (3.93-5.22); RDW 11.7 % (11.7-14.6); RDW-SD 39.6 fL; WBC 4.61 10^3/uL (4.4-10.8)
[2025-04-13 09:05] LABS: ALT 28 U/L (14-59); AST 19 U/L (15-37); Albumin 3.9 g/dL (3.4-5.0); Alkaline Phosphatase 80 U/L (46-116); Anion Gap 5.5 mmol/L (3-11); BUN 23 mg/dL (7-18); Bilirubin, Total 0.7 mg/dL (0.2-1.0); CO2 31.5 mmol/L (21.0-32.0); Calcium 9.6 mg/dL (8.5-10.1); Chloride 102 mmol/L (98-107); Estimated GFR 89.02 (mL/min/1.73m2); Glucose 123 mg/dL (74-106); Potassium 4.2 mmol/L (3.5-5.1); Sodium 139 mmol/L (136-145); Total Protein 6.9 g/dL (6.4-8.2)
== END 2025-04-13 14:59 | disposition home or self-care (01) ==
LOC: LBO 14:58
PROVIDERS: PCP Physician Assistant; Visit Provider Internal Medicine Hematology & Oncology
DX: C83.07 Small cell B-cell lymphoma, spleen (principal)
CPT/HCPCS: 36415; 80053; 85025